=== PATIENT | male | born 1980 | race Caucasian/White ===

== ENCOUNTER → 2016-09-24 | Outpatient (CLI) | payer OTHER ==
[~2016-09-24] MED LIST: AZIT250T6 PO; BENZ100C97 PO; CODE118S2 PO; FAMO-137 PO; PRED20TA PO
--- NOTE | 2016-09-24 14:59 | DI ---
INDICATION: ITS.REASON: J06.9 Acute upper respiratory infection, unspecified PROCEDURE: CHEST 2-VIEWS UPRIGHT (PA \T\ LAT) Encounter: Initial COMPARISON: None FINDINGS: The lungs are clear without evidence of focal abnormal airspace opacity. There is no pleural effusion or pneumothorax. The heart size, mediastinal contours and pulmonary vascularity are within normal limits. There is no significant skeletal abnormality. IMPRESSION: No acute cardiopulmonary disease. .
== END ==
LOC: IMA 14:41
PROVIDERS: ATTEND Nurse Practitioner Family
DX: J06.9 Acute upper respiratory infection, unspecified (principal)

== ENCOUNTER → 2016-09-28 | Outpatient (CLI) | payer OTHER ==
--- NOTE | 2016-09-29 08:55 | DI ---
Indication: ITS.REASON: Left-sided neck pain PROCEDURE: CERVICAL SPINE 4 OR 5 VIEWS: Encounter: Initial Comparison: None Findings: Alignment of the cervical spine is within normal limits. No acute fracture or subluxation. The oblique views show no areas of neural foraminal stenosis. Cervicothoracic junction is intact. Minimal disk space narrowing at C6-C7. Impression: Minimal degenerative change in the lower cervical spine. .
== END ==
LOC: IMA 18:21
PROVIDERS: ATTEND Family Medicine
DX: M54.2 Cervicalgia (principal)